=== PATIENT | female | born 1955 | race Caucasian/White ===

== ENCOUNTER → 2018-05-14 12:44 | Outpatient (CLI) | payer OTHER, BC, SELFPAY | PROVIDERS: Family Provider Internal Medicine; PCP Internal Medicine; Visit Provider Internal Medicine Cardiovascular Disease | DX: I34.1 Nonrheumatic mitral (valve) prolapse (principal); R00.2 Palpitations; E78.5 Hyperlipidemia, unspecified | CPT/HCPCS: 93306 ==

== ENCOUNTER → 2021-04-23 11:23 | Outpatient (CLI) | payer MEDICARE, OTHER, SELFPAY ==
[2020-05-25 11:07] VITALS: BMI 23.5
--- NOTE | 2021-04-23 11:25 | ECHOD_ITS ---
Reason For Study: MVP Procedure This was a 2D Doppler, Color Flow transthoracic echocardiogram. The study was technically difficult. Exam performed in department. Left Ventricle Normal LV size. Left ventricular systolic function is normal. The estimated ejection fraction is 60 %. No regional wall motion abnormalities noted. Right Ventricle Normal RV size. Normal systolic function. Atria Normal left atrium. Normal right atrium. No doppler evidence for ASD. Mitral Valve There is no mitral annular calcification. Moderate diffuse mitral valve thickening. Mild focal mitral valve calcification of the posterior leaflet. Myxomatous mitral valve. Moderate mitral valve prolapse. Mild (1+) mitral valve insufficiency. Tricuspid Valve Normal tricuspid valve. Mild tricuspid valve insufficiency. Unable to estimate RV systolic pressure/pulmonary artery pressure due to technically difficult study. Aortic Valve Trisinus/trileaflet aortic valve. Normal aortic valve. Pulmonic Valve The pulmonic valve is not well visualized. Trivial pulmonic valve insufficiency. Great Vessels Normal sized aortic root. Pericardium/Pleural No pericardial effusion. MMode/2D Measurements & Calculations LVIDd: 4.7 cm IVSd: 0.81 cm Ao root diam: 3.4 cm LVIDs: 2.9 cm LVPWd: 0.90 cm RVDd: 3.5 cm FS: 38.0 % LAV(MOD-bp): 57.4 ml LA A4 area: 18.1 cm2 LA dimension(2D): 3.3 cm LAV(MOD-bp) Indexed: 31.3 ml/m2 LAV(MOD-sp2): 55.2 ml LAV(MOD-sp4): 55.1 ml RA A4 area: 13.2 cm2 Time Measurements MV dec time: 0.26 sec Doppler Measurements & Calculations MV E max rojelio: 124.7 cm/sec Lat Peak E' Rojelio: 6.2 cm/sec Med Peak E' Rojelio: 5.7 cm/sec MV A max rojelio: 106.9 cm/sec E/E' lat: 20.1 E/E' med: 22.0 MV E/A: 1.2 Ao V2 max: 113.7 cm/sec LV V1 max: 102.8 cm/sec PA V2 max: 56.8 cm/sec Ao max P.2 mmHg LV V1 max P.2 mmHg ECHO/Echo Complete Interpretation Summary The study was technically difficult. Left ventricular systolic function is normal. The estimated ejection fraction is 60 %. Myxomatous mitral valve. Moderate mitral valve prolapse. Moderate diffuse mitral valve thickening. Mild focal mitral valve calcification of the posterior leaflet. Mild (1+) mitral valve insufficiency. Mild tricuspid valve insufficiency. Trivial pulmonic valve insufficiency. Unable to estimate RV systolic pressure/pulmonary artery pressure due to techni cristina difficult study. Transmitral diastolic flow velocities suggest diastolic dysfunction (pseudonorm al pattern). Ordering Physician: Guy Guillen Referring Physician: Ayad Salcedo Performed By: Janae Reza, RDCS, RVT
== END ==
PROVIDERS: PCP Internal Medicine; Referring Provider Internal Medicine Cardiovascular Disease; Visit Provider Internal Medicine Cardiovascular Disease
DX: I34.0 Nonrheumatic mitral (valve) insufficiency (principal)
CPT/HCPCS: 93306

== ENCOUNTER → 2022-06-16 | Outpatient (CLI) | payer MEDICARE, OTHER, SELFPAY ==
--- NOTE | 2022-06-16 09:43 | STRESSREP_ITS ---
Stress Test Report Date: 06-16-2022 Procedure: Exercise tolerance test/imaging study Indications: Chest pain; myxomatous mitral valve disease/mitral valve prolaps e/mitral valve regurgitation Consent: Per the patient Procedure: The patient exercised on a Clif protocol for 6 minutes and 30 seconds completing Stage II and 30 seconds of Stage III achieving a peak heart rate of 150 bpm (98% predicted maximal heart rate) with a peak blood pressure 150/82 mmHg and a peak MET capacity of 8 METs. The baseline ECG demonstrated normal sinus rhythm; nonspecific ST/T wave abnormality. The peak exercise ECG demonstrated no progressive ST/T wave abnormality changes. There were occasional PACs/repetitive PACs during exercise and a rare PVC during exercise and occasional PACs and a rare PVC during recovery. The functional capacity was considered fair. There was no complaint of chest discomfort during exercise or recovery. The examination was discontinued secondary to dyspnea. Impression: 1. Technically adequate (percent predicted maximal heart rate greater than 85%) exercise tolerance test 2. Peak exercise ECG with no progressive ST/T wave abnormality changes 3. There were occasional PACs/repetitive PACs during exercise and a rare PVC during exercise and occasional PACs and a rare PVC during recovery 4. Nuclear images pending Myocardial perfusion imaging study: Technique: The patient was injected with 11.5 mCi of technetium 99m Cardiolite and subsequently rest SPECT Cardiolite nuclear imaging was obtained in the horizontal long, vertical long, and short axis views. The patient exercised on a Clif protocol for 6 minutes and 30 seconds completing Stage II and 30 seconds of Stage III achieving a peak heart rate of 150 bpm (98% predicted maximal heart rate) with a peak blood pressure 150/82 mmHg and a peak MET capacity of 8 METs. The patient was injected with 33.8 mCi of technetium 99m Cardiolite and subsequently stress SPECT Cardiolite nuclear imaging was obtained in the horizontal long, vertical long, and short axis views. A gated Cardiolite study at peak stress was obtained. Interpretation: Rest and stress SPECT Cardiolite nuclear imaging status post realignment, normalization, and attenuation correction, demonstrates the appearance of relative uniform tracer uptake and myocardial perfusion appearing within normal limits. There is end systolic thickening and brightening. The gated Cardiolite study demonstrates myocardial thickening and inward wall motion. The reported LVEF is 75%. Impression: 1. Rest and stress SPECT Cardiolite nuclear imaging demonstrate relative uniform tracer uptake and myocardial perfusion appearing within normal limits. 2. The gated Cardiolite study reports an LVEF of 75%. This note was generated with Pantechation software. It may contain incorrect words, spelling, and punctuation that were not noted in checking the note before signing.
== END | disposition home or self-care (01) ==
LOC: CVS 06:00
PROVIDERS: PCP Internal Medicine; Referring Provider Internal Medicine Cardiovascular Disease; Visit Provider Internal Medicine Cardiovascular Disease
DX: R07.9 Chest pain, unspecified (principal)
CPT/HCPCS: 78452; 93017; A9500; A4216